=== PATIENT | female | born 1985 | race Caucasian/White ===

== ENCOUNTER 2017-04-11 09:13 | Emergency (ER) | payer BC ==
[2017-04-11] MEDS ORDERED: LORazepam 1 MG Tab PO ONE (09:36)
--- NOTE | 2017-04-11 10:11 | EDM.PDOC ---
ED HPI GENERAL MEDICAL PROBLEM - General Chief Complaint: Cardiovascular Problem Stated Complaint: [id number] HIGH BLOOD PRESSURE Time Seen by Provider: 04/11/17 09:20 Source of Information: Reports: Patient History Limitations: Reports: No Limitations - History of Present Illness INITIAL COMMENTS - FREE TEXT/NARRATIVE: Patient comes emergency Department today with complaints of left bicep pain as well as high blood pressure. Patient relates that she was seen last week by her neurosurgeon for some bursitis in her back and was told that she had quite elevated blood pressure. She was told to follow-up with her primary care provider at that time for which she has not done today yet. Today while she was at work she noticed that she had some left arm pain. I checked her blood pressure work and it was quite elevated in the 190s systolically. She does have a quite extensive history of anxiety for which she does not take any controller medication and uses hydroxyzine on a when necessary basis for her panic attacks. She is quite anxious this morning with the pain in her arm as well as her concerns over her blood pressure and every time that she checks her blood pressure it seems to go up somewhat. She adamantly denies any chest pain shortness of breath epigastric pain or abdominal pain. No fever or chills. No headache no pressure behind her eyes no dizziness weakness lightheadedness. No numbness or tingling to any of her extremities. She denies any nausea vomiting or diaphoresis. No hematuria dysuria or urinary frequency. No flank pain. She denies any injury to her left arm. The pain is a sharp shooting stabbing pain that is intermittent in her left arm that comes and goes with movement. Left Chest Pain Score (Numeric/FACES): 5 - Related Data Allergies Allergy/AdvReac Type Severity Reaction Status Date / Time coconut oil Allergy Cannot Verified 04/11/17 09:29 Remember Cherries Allergy Hives Uncoded 04/11/17 09:29 Home Meds: Home Meds hydrOXYzine HCl [hydrOXYzine] 25 mg PO ASDIRECTED PRN 10/21/15 [History] Hydrocodone/Acetaminophen [Hydrocodon-Acetaminophen 5-325] 1 each PO Q6H PRN [History] medroxyPROGESTERone Acetate [Depo-Provera] 150 mg IM ASDIRECTED 04/11/17 [ History] Past Medical History Cardiovascular History: Reports: Hypertension Respiratory History: Reports: None Gastrointestinal History: Reports: None Genitourinary History: Reports: None 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: Musculoskeletal History: Reports: Back Pain, Chronic Neurological History: Reports: None Psychiatric History: Reports: Anxiety Endocrine/Metabolic History: Reports: Obesity/BMI 30+ Hematologic History: Reports: None Immunologic History: Reports: None Oncologic (Cancer) History: Reports: None - Infectious Disease History Infectious Disease History: Reports: Chicken Pox - Past Surgical History HEENT Surgical History: Reports: Oral Surgery GI Surgical History: Reports: Bariatric Procedure, Cholecystectomy, Hernia, Abdominal Female Surgical History: Reports: Section Social & Family History - Family History Family Medical History: Noncontributory Cardiac: Reports: Bypass, Hypertension Other Cardiac Family History: Father - Tobacco Use Smoking Status *Q: Heavy Tobacco Smoker Years of Tobacco use: 17 Packs/Tins Daily: 0.5 Second Hand Smoke Exposure: No - Caffeine Use Caffeine Use: Reports: Coffee - Recreational Drug Use Recreational Drug Use: No ED ROS GENERAL - Review of Systems Review Of Systems: ROS reveals no pertinent complaints other than HPI. ED EXAM, GENERAL - Physical Exam Exam: See Below Exam Limited By: No Limitations General Appearance: Alert, WD/WN, No Apparent Distress Eye Exam: Bilateral Eye: Normal Inspection Ears: Normal External Exam, Normal Canal, Normal TMs Nose: Normal Inspection, Normal Mucosa Throat/Mouth: Normal Inspection, Normal Lips, Normal Oropharynx, Normal Voice Head: Atraumatic, Normocephalic Neck: Normal Inspection, Supple, Non-Tender Respiratory/Chest: No Respiratory Distress, Lungs Clear, Normal Breath Sounds, No Accessory Muscle Use, Chest Non-Tender Cardiovascular: Normal Peripheral Pulses, Regular Rate, Rhythm, No Gallop, No JVD, No Murmur, No Rub Peripheral Pulses: 2+: Radial (L), Radial (R), Posterior Tibial (L), Posterior Tibial (R), Dorsalis Pedis (L), Dorsalis Pedis (R) GI/Abdominal: Normal Bowel Sounds, Soft, Non-Tender, No Distention, No Abnormal Bruit, No Mass (Female) Exam: Deferred Rectal (Female) Exam: Deferred Back Exam: Normal Inspection, Full Range of Motion Extremities: Normal Inspection, Normal Range of Motion, Non-Tender, No Pedal Edema, Normal Capillary Refill, Other (I am able to palpate the left arm where she relates her left arm pain is and it does not elicit any pain. Although when I move her arm throughout the range of motion actively or passively it does elicit tenderness and pain in the biceps region. There is no lumps or bumps swelling erythema ecchymosis or any other signs of change in the soft tissue.) Neurological: Alert, Oriented, CN II-XII Intact, Normal Cognition, Normal Reflexes, No Motor/Sensory Deficits Psychiatric: Normal Affect, Normal Mood Skin Exam: Warm, Dry, Intact, Normal Color, No Rash Lymphatic: No Adenopathy EKG INTERPRETATION EKG Date: 04/11/17 Time: 09:38 Rhythm: NSR Rate (Beats/Min): 74 Adams: Normal P-Wave: Present QRS: Normal ST-T: Normal QT: Normal Course - Vital Signs Last Recorded V/S: Last Vital Signs Temp 35.9 C 04/11/17 09:20 Pulse 77 04/11/17 10:57 Resp 18 04/11/17 10:57 BP 157/100 H 04/11/17 10:57 Pulse Ox 100 04/11/17 10:57 - Orders/Labs/Meds Orders: Active Orders 24 hr Category Date Time Status EKG 12 Lead [EKG Documentation Completion] [RC] URGENT Care 04/11/17 09:36 Active Chest 2V [CR] Urgent Exams 04/11/17 09:36 Taken LACTIC ACID [CHEM] Stat Lab 04/11/17 10:40 Received Labs: Laboratory Tests 04/11/17 04/11/17 04/11/17 Range/Units 09:49 09:49 09:49 WBC 22.5 H (5.0-10.0) 10^3/uL RBC 4.63 (4.2-5.4) 10^6/uL Hgb 12.9 (12.0-16.0) g/dL Hct 39.4 (37.0-47.0) % MCV 85.1 (80-100) fL MCH 27.9 (27.0-34.0) pg MCHC 32.7 L (33.0-35.0) g/dL Plt Count 341 (150-450) 10^3/uL Neut % (Auto) 81.3 H (42.2-75.2) % Lymph % (Auto) 12.3 L (20.5-50.1) % Dukes % (Auto) 6.1 (2-8) % Eos % (Auto) 0.1 L (1.0-3.0) % Baso % (Auto) 0.2 (0.0-1.0) % Add Manual Diff Yes Neutrophils % (Manual) 80 % Band Neutrophils % 3 % Lymphocytes % (Manual) 13 % Monocytes % (Manual) 3 % Eosinophils % (Manual) 1 % Sodium 138 (135-145) mmol/L Potassium 4.1 (3.6-5.0) mmol/L Chloride 107 (101-111) mmol/L Carbon Dioxide 20.0 L (21.0-31.0) mmol/L Anion Gap 15.1 BUN 16 (7-18) mg/dL Creatinine 0.6 (0.6-1.3) mg/dL Est Cr Clr Drug Dosing 141.98 mL/min Estimated GFR (MDRD) > 60 BUN/Creatinine Ratio 26.66 Glucose 109 H (74-105) mg/dL Calcium 9.0 (8.4-10.2) mg/dl Total Bilirubin 0.5 (0.2-1.0) mg/dL AST 16 (10-42) IU/L ALT 18 (10-60) IU/L Alkaline Phosphatase 56 (42-121) IU/L Troponin I < 0.02 (0.00-0.02) ng/ml C-Reactive Protein 0.7 (0.0-1.3) mg/dL Total Protein 7.9 (6.7-8.2) g/dl Albumin 4.1 (3.2-5.5) g/dl Globulin 3.8 Albumin/Globulin Ratio 1.08 Urine Color (YELLOW) Urine Appearance (CLEAR) Urine pH (5.0-9.0) Ur Specific [place] (1.005-1.030) Urine Protein (NEGATIVE) Urine Glucose (UA) (NEGATIVE) Urine Ketones (NEGATIVE) Urine Occult Blood (NEGATIVE) Urine Nitrite (NEGATIVE) Urine Bilirubin (NEGATIVE) Urine Urobilinogen (0.2-1.0) mg/dL Ur Leukocyte Esterase (NEGATIVE) Urine RBC /HPF Urine WBC (0-5/HPF) /HPF Ur Epithelial Cells /HPF Urine Bacteria (0-FEW/HPF) /HPF Urine Mucus /LPF 06/25/17 Range/Units 10:32 WBC (5.0-10.0) 10^3/uL RBC (4.2-5.4) 10^6/uL Hgb (12.0-16.0) g/dL Hct (37.0-47.0) % MCV (80-100) fL MCH (27.0-34.0) pg MCHC (33.0-35.0) g/dL Plt Count (150-450) 10^3/uL Neut % (Auto) (42.2-75.2) % Lymph % (Auto) (20.5-50.1) % Dukes % (Auto) (2-8) % Eos % (Auto) (1.0-3.0) % Baso % (Auto) (0.0-1.0) % Add Manual Diff Neutrophils % (Manual) % Band Neutrophils % % Lymphocytes % (Manual) % Monocytes % (Manual) % Eosinophils % (Manual) % Sodium (135-145) mmol/L Potassium (3.6-5.0) mmol/L Chloride (101-111) mmol/L Carbon Dioxide (21.0-31.0) mmol/L Anion Gap BUN (7-18) mg/dL Creatinine (0.6-1.3) mg/dL Est Cr Clr Drug Dosing mL/min Estimated GFR (MDRD) BUN/Creatinine Ratio Glucose (74-105) mg/dL Calcium (8.4-10.2) mg/dl Total Bilirubin (0.2-1.0) mg/dL AST (10-42) IU/L ALT (10-60) IU/L Alkaline Phosphatase (42-121) IU/L Troponin I (0.00-0.02) ng/ml C-Reactive Protein (0.0-1.3) mg/dL Total Protein (6.7-8.2) g/dl Albumin (3.2-5.5) g/dl Globulin Albumin/Globulin Ratio Urine Color Yellow (YELLOW) Urine Appearance Slightly cloudy (CLEAR) Urine pH 6.0 (5.0-9.0) Ur Specific [place] >= 1.030 (1.005-1.030) Urine Protein 30 H (NEGATIVE) Urine Glucose (UA) Negative (NEGATIVE) Urine Ketones Trace H (NEGATIVE) Urine Occult Blood Negative (NEGATIVE) Urine Nitrite Negative (NEGATIVE) Urine Bilirubin Small H (NEGATIVE) Urine Urobilinogen 0.2 (0.2-1.0) mg/dL Ur Leukocyte Esterase Negative (NEGATIVE) Urine RBC 0-5 /HPF Urine WBC 5-10 H (0-5/HPF) /HPF Ur Epithelial Cells Moderate H /HPF Urine Bacteria Rare (0-FEW/HPF) /HPF Urine Mucus Moderate H /LPF Meds: Medications Discontinued Medications Generic Name Dose Route Start Last Admin Trade Name Douglas PRN Reason Stop Dose Admin Lorazepam 1 mg 04/11/17 09:36 04/11/17 09:47 Ativan PO 04/11/17 09:37 1 mg ONETIME ONE Administration - Radiology Interpretation Free Text/Narrative:: Chest x-ray per radiology with no acute cardiopulmonary abnormality identified. - Re-Assessments/Exams Free Text/Narrative Re-Assessment/Exam: 04/11/17 11:12 EKG was negative. Troponin was negative. Following the Ativan she felt much less anxious. Her blood pressure improved to 153/93. She is without complaints at this time. Incidentally we did find that she has a quite elevated leukocytosis. She does not have any fever chills chest pain shortness breath cough. She denies any abdominal pain. Urinalysis is rather unremarkable. His could be related to a recent stent of glucocorticoids that were given for some chronic back pain. She is going to follow-up with her primary care provider this week for recheck of blood pressure and I will have her recheck her laboratory evaluation at that time. She does have a negative CRP at this time. She is comfortable with discharge at the time and her questions were answered. Departure - Departure Time of Disposition: 11:08 Disposition: Home, Self-Care 01 Clinical Impression: Anxiety Hypertension Qualifiers: Hypertension type: unspecified secondary hypertension Qualified Code(s): I15.9 - Secondary hypertension, unspecified Arm pain Qualifiers: Laterality: left Qualified Code(s): M79.602 - Pain in left arm Leukocytosis Qualifiers: Leukocytosis type: unspecified Qualified Code(s): D72.829 - Elevated white blood cell count, unspecified Instructions: Hypertension, Wbre-[id number], Panic Attacks, Iocp-ed-Tybw, Nonspecific Chest Pain, [id number] Forms: ED Department Discharge Additional Instructions: Follow up with primary care next available for initial management of HTN. Tylenol and or ibuprofen as needed for the arm pain. Continue the hydroxyzine as needed for panic attacks. If attacks more common consider custodial prophylaxis with a daily anti-anxiety medication. Return to the ED if new or worsening symptoms. - My Orders Last 24 Hours: My Active Orders 04/11/17 09:36 EKG 12 Lead [EKG Documentation Completion] [RC] URGENT Chest 2V [CR] Urgent 04/11/17 10:40 LACTIC ACID [CHEM] Stat - Assessment/Plan Last 24 Hours: My Active Orders 04/11/17 09:36 EKG 12 Lead [EKG Documentation Completion] [RC] URGENT Chest 2V [CR] Urgent 04/11/17 10:40 LACTIC ACID [CHEM] Stat Assessment:: Hypertension anxiety Left arm pain, negative cardiac workup. Leukocytosis with unkown cause. Negative CRP Plan: Follow up with primary care next available for initial management of HTN. Tylenol and or ibuprofen as needed for the arm pain. Continue the hydroxyzine as needed for panic attacks. If attacks more common consider receiving operator prophylaxis with a daily anti-anxiety medication. Return to the ED if new or worsening symptoms.
[2017-04-11 10:17] LABS: CHLORIDE,CL 107 mmol/L (101-111); SODIUM,NA 138 mmol/L (135-145)
[2017-04-11 10:58] VITALS: BP 157/100
--- NOTE | 2017-04-30 14:15 | EKG ---
04/11/2017 - QUINN ERNANDEZ - EKG is sinus rhythm with a rate of 74. Normal OK interval, normal axis. EKG is within normal limits. [facility] /[id number]
== END 2017-04-11 11:20 | disposition home or self-care (01) ==
LOC: DL.ED 09:13
DX: I15.9 Secondary hypertension, unspecified (principal); F41.9 Anxiety disorder, unspecified; D72.829 Elevated white blood cell count, unspecified; M79.602 Pain in left arm; F17.210 Nicotine dependence, cigarettes, uncomplicated; E66.9 Obesity, unspecified; Z91.018 Allergy to other foods; Z90.49 Acquired absence of other specified parts of digestive tract; Z98.84 Bariatric surgery status
CPT/HCPCS: 36415; 71020; 80053; 81001; 83605; 84484; 85025; 86140; 93005; 99284; A9270

== ENCOUNTER 2017-06-04 17:42 | Emergency (ER) | payer BC ==
[2017-06-04 17:51] VITALS: BP 152/91
[2017-06-04] MEDS ORDERED: methylPREDNISolone Sodium Succinate 125 MG/2 ML SDV IM ONE (20:02)
[2017-06-04] MEDS ORDERED: Acetaminophen/HYDROcodone 325-10 MG Tab PO ONE ×2 (20:02→20:11)
--- NOTE | 2017-06-04 20:08 | EDM.PDOC ---
ED HPI GENERAL MEDICAL PROBLEM - General Chief Complaint: Lower Extremity Injury/Pain Stated Complaint: HIPS ARE SEVERELY PAINFUL, [id number] Time Seen by Provider: 06/04/17 20:03 Source of Information: Reports: Patient History Limitations: Reports: No Limitations - History of Present Illness INITIAL COMMENTS - FREE TEXT/NARRATIVE: gives h/o hip bursitis and had it Tx successfully with cortisone shot @ [facility] but didn't know exactly which. Bilateral Hip Pain Score (Numeric/FACES): 8 - Related Data Allergies Allergy/AdvReac Type Severity Reaction Status Date / Time coconut oil Allergy Cannot Verified 04/11/17 09:29 Remember Cherries Allergy Hives Uncoded 04/11/17 09:29 Home Meds: Home Meds hydrOXYzine HCl [hydrOXYzine] 25 mg PO ASDIRECTED PRN 10/21/15 [History] Hydrocodone/Acetaminophen [Hydrocodon-Acetaminophen 5-325] 1 each PO Q6H PRN [History] medroxyPROGESTERone Acetate [Depo-Provera] 150 mg IM ASDIRECTED 04/11/17 [ History] Past Medical History Cardiovascular History: Reports: Hypertension Respiratory History: Reports: None Gastrointestinal History: Reports: None Genitourinary History: Reports: None 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: Musculoskeletal History: Reports: Back Pain, Chronic, Other (See Below) Other Musculoskeletal History: SI joint bursitis Neurological History: Reports: None Psychiatric History: Reports: Anxiety Endocrine/Metabolic History: Reports: Obesity/BMI 30+ Hematologic History: Reports: None Immunologic History: Reports: None Oncologic (Cancer) History: Reports: None - Infectious Disease History Infectious Disease History: Reports: Chicken Pox - Past Surgical History HEENT Surgical History: Reports: Oral Surgery GI Surgical History: Reports: Bariatric Procedure, Cholecystectomy, Hernia, Abdominal Female Surgical History: Reports: Section Social & Family History - Family History Family Medical History: Noncontributory Cardiac: Reports: Bypass, Hypertension Other Cardiac Family History: Father - Tobacco Use Smoking Status *Q: Heavy Tobacco Smoker Years of Tobacco use: 17 Packs/Tins Daily: 0.5 Second Hand Smoke Exposure: No - Caffeine Use Caffeine Use: Reports: Coffee - Recreational Drug Use Recreational Drug Use: No Review of Systems - Review of Systems Review Of Systems: ROS reveals no pertinent complaints other than HPI. ED EXAM, GENERAL - Physical Exam Exam: See Below Exam Limited By: No Limitations General Appearance: Alert, WD/WN, Mild Distress, Other (crying) Ears: Hearing Grossly Normal Throat/Mouth: Normal Voice, No Airway Compromise Head: Atraumatic Neck: Non-Tender, Full Range of Motion Respiratory/Chest: No Respiratory Distress Cardiovascular: Regular Rate, Rhythm GI/Abdominal: Soft, Non-Tender Back Exam: Muscle Spasm, Paraspinal Tenderness, Other (LBP) Neurological: Alert, Oriented, Normal Cognition, No Motor/Sensory Deficits, Other (gait limited to pain) Psychiatric: Tearful Skin Exam: Warm, Dry, Normal Color Lymphatic: No Adenopathy Course - Vital Signs Last Recorded V/S: Last Vital Signs Temp 36.7 C 06/04/17 17:47 Pulse 84 06/04/17 17:47 Resp 16 06/04/17 17:47 BP 152/91 H 06/04/17 17:47 Pulse Ox 99 06/04/17 17:47 - Orders/Labs/Meds Orders: Active Orders 24 hr Category Date Time Status Acetaminophen/HYDROcodone [Sunset 325-10 MG] Med 06/04/17 20:02 Once 1 tab PO ONETIME ONE methylPREDNISolone Sod Succ [Solu-MEDROL] Med 06/04/17 20:02 Once 125 mg IM ONETIME ONE Departure - Departure Time of Disposition: 20:08 Disposition: Home, Self-Care 01 Condition: Good Clinical Impression: Hip bursitis Qualifiers: Hip bursitis location: unspecified Laterality: bilateral Qualified Code(s): M70.71 - Other bursitis of hip, right hip; M70.72 - Other bursitis of hip, left hip - Discharge Information Instructions: Hip Pain Forms: ED Department Discharge Additional Instructions: 1) rest 2) avoid bending lifting straining next 48 hours 3) try ice or heat to sore areas rx given; medrol dospak vicodin 5/325mg bid prn x 12 hyroxyzine 25mg bid prn x 12 - My Orders Last 24 Hours: My Active Orders 06/04/17 20:02 Acetaminophen/HYDROcodone [Sunset 325-10 MG] 1 tab PO ONETIME ONE methylPREDNISolone Sod Succ [Solu-MEDROL] 125 mg IM ONETIME ONE - Assessment/Plan Last 24 Hours: My Active Orders 06/04/17 20:02 Acetaminophen/HYDROcodone [Sunset 325-10 MG] 1 tab PO ONETIME ONE methylPREDNISolone Sod Succ [Solu-MEDROL] 125 mg IM ONETIME ONE
[2017-06-04] MEDS ORDERED: hydrALAZINE 25 MG Tab PO ONE (20:11)
[2017-06-04] MEDS ORDERED: Acetaminophen/HYDROcodone 325-10 MG Tab ONE (20:11)
[2017-06-04] MEDS ORDERED: hydrOXYzine HCl 25 MG Tab ONE (20:11)
== END 2017-06-04 20:16 | disposition home or self-care (01) ==
LOC: DL.ED 17:42
DX: M70.72 Other bursitis of hip, left hip (principal); M70.71 Other bursitis of hip, right hip; I10 Essential (primary) hypertension; E66.9 Obesity, unspecified; F41.9 Anxiety disorder, unspecified; F17.210 Nicotine dependence, cigarettes, uncomplicated; Z91.018 Allergy to other foods
CPT/HCPCS: 96372; 99283; J2930; A9270-GY

== ENCOUNTER 2017-10-28 05:09 | Day surgery (SDC) | payer BC ==
[2017-10-28] MEDS ORDERED: fentaNYL 100 MCG/2 ML SDV IV ONE ×3 (05:10→06:29)
[2017-10-28] MEDS ORDERED: Midazolam 1 MG/ML 2 ML SDV IV ONE ×3 (05:10→06:31)
[2017-10-28] MEDS ORDERED: Sodium Chloride 0.9% 10 ML Syringe FLUSH PRN (06:00)
[2017-10-28] MEDS ORDERED: Dextrose 5%-0.45% NaCl 1,000 ML IV SCH (06:00)
[2017-10-28] MEDS ORDERED: Midazolam 1 MG/ML 2 ML SDV ONE (06:18)
[2017-10-28] MEDS ORDERED: fentaNYL 100 MCG/2 ML SDV ONE (06:18)
--- NOTE | 2017-10-28 08:19 | OR ---
DATE: 10/28/2017 PROCEDURE: Esophagogastroduodenoscopy and multiple pinch biopsies. INSTRUMENT USED: GIF-H180 Olympus video panendoscope. PREMEDICATIONS: No oral topical anesthesia used. Fentanyl 100 mcg intravenous, Versed 2 mg intravenous. The procedure was done under pulse oximetry, BP recording, and help desk supervisor. INDICATION: The patient with persistent abdominal pain and dyspepsia, unexplained, and not responsive to medical measures. DESCRIPTION OF PROCEDURE: Esophagogastroduodenoscopy is performed for detection of any active erosive lesions, Ramirez esophagus and/or malignancy also under consideration, H. pylori status to be determined, endoscopic hemostasis therapy if needed. The scope was passed with ease. Adequate visualization of the esophagus was made from proximal to distal areas. No upper esophageal lesions identified. No distal esophageal stricture. No uphill or downhill esophageal varices. No Brianda-Burt tear. No evidence of erosive esophagitis by Edmunds criteria. No esophageal polyp or tumor mass identified. Z-line was seen at around 40 cm distal to the oral verge, configuration consistent with grade 1 Zapp classification. No proximal gastric varices noted. Gastric fundus examination by retroflexion showed no polypoid lesions. No gastric ulcer, malignant mass, or vascular ectasia identified. The examination was compromised especially in the proximal stomach due to the presence of large amount of solid food material that could not be aspirated clear. Duodenal bulb showed no ulcer. Visualized second part of the duodenum was unremarkable. Multiple pinch biopsies were obtained from the gastric antrum and proximal body and sent for PyloriTek test for H. pylori, and if negative in an hour, the tissue is to be sent for histopathology. No bleeding was noted from any of the visualized areas at the completion of examination. Photographs were taken of the duodenal bulb, gastric antrum, fundus, and distal esophagus. IMPRESSION: Gastric food retention. The patient tolerated the procedure well. [facility] /[id number]
[2017-10-28 09:51] VITALS: BP 140/78
== END 2017-10-28 08:43 | disposition home or self-care (01) ==
LOC: DL.ENDO 05:09
PROVIDERS: ATTEND Internal Medicine Gastroenterology
DX: K29.50 Unspecified chronic gastritis without bleeding (principal); F17.210 Nicotine dependence, cigarettes, uncomplicated; E66.09 Other obesity due to excess calories; I10 Essential (primary) hypertension; Z90.49 Acquired absence of other specified parts of digestive tract
CPT/HCPCS: 43239; 87077; J2250; J3010; J7042

== ENCOUNTER 2024-04-22 10:21 | Emergency (ER) | payer OTHER ==
[2024-04-22 10:41] VITALS: BP 134/81; PULSE 87
== END 2024-04-22 11:24 | disposition home or self-care (01) ==
LOC: DL.ED 10:21
DX: L03.311 Cellulitis of abdominal wall (principal); I10 Essential (primary) hypertension; Z91.048 Other nonmedicinal substance allergy status; Z91.018 Allergy to other foods; Z79.899 Other long term (current) drug therapy; Z90.49 Acquired absence of other specified parts of digestive tract
CPT/HCPCS: 99283